=== PATIENT | male | born 1945 | race American Indian/Alaskan Native ===

== ENCOUNTER 2017-09-18 06:08 | Inpatient (IN) | payer MEDICARE, OTHER ==
[2017-09-17 16:32] VITALS: BMI 33.3
[2017-09-18 07:46] LABS: BLOOD UREA NITROGEN 11 mg/dl (9-20); CALCIUM 9.3 mg/dL (8.4-10.2); CARBON DIOXIDE 29 mmol/L (22-30); CHLORIDE 104 mmol/L (98-107); GFR AFRICAN-AMERICAN > 60; GLUCOSE,RANDOM 83 mg/dL (75-110); POTASSIUM 3.9 MMOL/L (3.6-5.0); SODIUM 142 mmol/l (132-148)
[2017-09-18] MEDS ORDERED: Lactated Ringer's 1,000 ML IV ONE ×2 (08:04→14:56)
[2017-09-18] MEDS ORDERED: Etomidate 20 mg/10ml Inj IV ONE (11:21)
[2017-09-18] MEDS ORDERED: Succinylcholine 200 mg/10 ml Inj IV ONE (11:21)
[2017-09-18] MEDS ORDERED: Phenylephrine 10 mg/ml Inj ONE (11:40)
[2017-09-18] MEDS ORDERED: ceFAZolin IV 1 gm in Dextrose 1 GM/50 ML BAG IVPB ONE ×2 (11:41→12:05)
[2017-09-18] MEDS ORDERED: Midazolam 2 MG/2 ML VIAL ONE (11:54)
[2017-09-18] MEDS ORDERED: Propofol 10 mg/ml Inj (20 ML) ONE (11:58)
[2017-09-18] MEDS ORDERED: Rocuronium 10 mg/ml (5 ml) ONE ×2 (12:03→13:25)
[2017-09-18] MEDS ORDERED: Sevoflurane - Inhalation Anesthetic Liq (250 ml) ONE (12:06)
[2017-09-18] MEDS ORDERED: ePHEDrine 50 mg/ml Inj ONE (12:12)
[2017-09-18] MEDS ORDERED: Neostigmine Methylsulfate 2 MG/2 ML ML IV ONE (14:45)
[2017-09-18] MEDS ORDERED: Bupivacaine HCl 0.25% PF (30 ml) Inj ONE (14:49)
[2017-09-18] MEDS ORDERED: Bupivacaine HCl/Epi 0.5% 1:20000 30 ML SOL IJ ONE (14:49)
[2017-09-18] MEDS ORDERED: Desflurane Inhalation Anesthetic Liq (240 ml) ONE (15:05)
[2017-09-18] MEDS ORDERED: HYDROmorphone 0.5 mg/0.5 ml ISec IVP PRN (15:56)
[2017-09-18] MEDS ORDERED: Influenza Vaccine 18yr & older 0.5 ML/45 MCG SYR IM ONE (16:00)
[2017-09-18] MEDS ORDERED: Pneumococcal 23-Valent Vaccine IM ONE (16:00)
--- NOTE | 2017-09-18 16:02 | PCM.ANESB3 ---
Femoral Nerve Block - Femoral Nerve Block Date of Procedure: 09/18/17 Anesthesiologist: Dr. Salazar Pre-Procedure Diagnosis: S/P right TKR Post-Procedure Diagnosis: S/P right TKR Procedure Performed: Femoral Nerve Block Right - Procedure Femoral Nerve Block: The procedure was explained to the patient that it is for the post-operative pain management. Consent was obtained after a thorough discussion with the patient regarding the benefits and possible complications of local anesthetic block of the femoral nerve at the inguinal crease area. The patient was brought to the operating room and standard monitors were applied. Time-out was held with the circulating nurse to confirm the correct surgery and the appropriate block. While still under general anesthesia after the surgery, patient in supine position with fully extended lower extremities and the right groin exposed. The femoral artery was then carefully palpated. The ultrasound transducer was then applied to this area in the transverse plane and the femoral nerve was visualized lateral to the femoral artery and underneath the fascia iliaca. After thorough identification, the inguinal crease area was prepped with Chloraprep solution. At this point, a #21 gauge Stimuplex 4-inch needle was inserted immediately lateral to the femoral artery pulse at the inguinal crease and advanced perpendicularly. The needle was inserted to the ultrasound transducer in-plane towards the femoral nerve in a [id number] direction. Needle advancement was performed carefully under direct ultrasound visualization. Nerve stimulator was used and twitch of the quadriceps muscle was obtained at current of 0.3MA. After negative aspiration, 2cc of 0.375% bupivacaine with 1:200,000 epinephrine was injected and this was followed with 18cc of 0.375% bupivacaine with 1:200, 000 epinephrine. Under ultrasound guidance the local anesthetics were observed spreading below fascia iliaca and around the femoral nerve. The needle was removed intact and sterile dressing was applied. The patient had stable vital signs, was conscious and in no apparent distress. The patient tolerated the femoral nerve block well with stable vital signs and was awaken from anesthesia and extubated. Patient transported to PACU with stable vital signs.
--- NOTE | 2017-09-18 16:09 | PCM.ANESB2 ---
Popliteal Nerve Block - Popliteal Nerve Block Date of Procedure: 09/18/17 Anesthesiologist: Dr. Salazar Pre-Procedure Diagnosis: S/P right TKR Post-Procedure Diagnosis: S/P right TKR Procedure Performed: Popliteal Nerve Block Right - Procedure Popliteal Nerve Block: This procedure was explained to the patient that it is for post-operative pain management. Consent was obtained after a thorough discussion with the patient regarding the benefits and possible complications of local anesthetic block of the sciatic nerve at the popliteal level. The patient was brought to the operating room and standard monitors are applied. Time-out was held with the circulating nurse to confirm the correct surgery and the appropriate block. After the surgery while still under general anesthesia, patient's operative leg was gently raised and supported and the groove in between the biceps femoris and vastus lateralis muscles was carefully palpated. The skin approximately proximal thigh was then marked. The ultrasound transducer was then applied to the posterior thigh in the transverse plane and the sciatic nerve was visualized and in between the bicep femoris and semimembranosus/semitendinosus muscles. After identification, the lateral portion of the thigh was prepped with Chloraprep solution. At this point, a # 21 gauge Stimuplex insulated 4 inch needle was inserted into pre-marked area and advanced in a perpendicular direction. The needle was inserted above the ultrasound transducer in-plane towards the sciatic nerve in a [id number] direction. Needle advancement was performed carefully under direct ultrasound visualization. Nerve stimulator was used and dorsiflexion of the right foot was elicited at a current of 0.3 MA. After repeated negative aspiration, 2cc of 0.375% bupivacaine with 1:200,000 epinephrine was injected and this was flowed with 18cc of 0.375% bupivacaine with 1:200,000 epinephrine. Under ultrasound guidance the local anesthetics were observed surrounding sciatic nerve . The needle was removed intact and sterile dressing was applied. The patient tolerated the popliteal nerve block well with stable vital signs. Patient was subsequently awaken from anesthesia and extubated. Then transportes to PACU with stable vital signs.
--- NOTE | 2017-09-18 16:30 | RAD ---
PROCEDURE: Right Knee Radiographs. HISTORY: s/p R TKA COMPARISON: None. FINDINGS: BONES: No fracture. Status post TKR. Expected postoperative change in anterior soft tissues. JOINTS: Normal. No osteoarthritis. JOINT EFFUSION: None. OTHER FINDINGS: None. IMPRESSION: Status post right TKR.
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
[2017-09-18] MEDS ORDERED: ceFAZolin 2 GM in Sodium Chloride 0.9% 100 ML IVPB SCH (17:00)
[2017-09-18] MEDS: ceFAZolin 2 GM in Sodium Chloride 0.9% 100 ML IVPB SCH (21:50)
[2017-09-19] MEDS: Lactated Ringer's 1,000 ML IV SCH ×2 (00:53→07:35)
[2017-09-19] MEDS: ceFAZolin 2 GM in Sodium Chloride 0.9% 100 ML IVPB SCH ×3 (04:22→20:24)
[2017-09-19] MEDS: Insulin Regular 100 units/ml SC SCH ×4 (06:57→22:04)
[2017-09-19] MEDS: HYDROmorphone 0.5 mg/0.5 ml ISec IVP PRN ×4 (08:13→21:34)
[2017-09-19] MEDS: Insulin Detemir 100 Units/ml Inj SC SCH (08:51)
[2017-09-19] MEDS: Metoprolol Succinate 25 mg XL Tab PO SCH (09:00)
--- NOTE | 2017-09-19 10:15 | CP.PCM.PN ---
Subjective - Date & Time of Evaluation Date of Evaluation: 09/19/17 Time of Evaluation: 08:40 - Subjective Subjective: 72 y/o male seen at bedside this morning 1 day s/p R total knee arthroplasty. Pt admits to mild pain overnight but states that the pain meds are keeping his pain levels under control. Pt has kept the dressing and brace on his R knee clean, dry and intact and has remained in bed when on his own. Pt notes mild swelling in his R foot that he states only began after surgery. Pt states he was seen by physical therapy and began to practice getting out of bed and mobilizing with the use of a walker. Pt states it was difficult for him due to the fact he still feels numb from the anesthesia. Pt also states he chronically deals with nerve pain in his feet due to his diabetes, but states his diabetes is well controlled and he regularly takes his medications. Pt denies any F/C/N/V /CP/SOB. Pt denies any calf pain or tenderness. Objective - Vital Signs/Intake and Output Vital Signs (last 24 hours): Temp Pulse Resp BP Pulse Ox 99.7 F H 74 20 143/71 100 09/19/17 08:29 09/19/17 08:50 09/19/17 08:29 09/19/17 08:50 09/19/17 08:29 - Medications Medications: Current Medications Amlodipine Besylate (Norvasc) 5 mg PO DAILY [facility] Last Admin: 09/19/17 08:50 Dose: 5 mg Atorvastatin Calcium (Lipitor) 20 mg PO HS [facility] Last Admin: 09/19/17 08:51 Dose: 20 mg Enoxaparin Sodium (Lovenox) 30 mg SC Q12 [facility] PRN Reason: Protocol Gabapentin (Neurontin) 300 mg PO TID [facility] Hydromorphone HCl (Dilaudid) 0.5 mg IVP Q4 PRN PRN Reason: Pain, moderate (4-7) Last Admin: 09/19/17 08:13 Dose: 0.5 mg Lactated Ringer's (Lactated Ringer's) 1,000 mls @ 100 mls/hr IV .Q10H [facility] Last Admin: 09/19/17 07:35 Dose: Not Given Cefazolin Sodium 2 gm/ Sodium (Chloride) 100 mls @ 100 mls/hr IVPB Q8@0400,1200 ,2000 [facility] PRN Reason: Protocol Last Admin: 09/19/17 04:22 Dose: 100 mls/hr Insulin Detemir (Levemir) 40 units SC DAILY [facility] Last Admin: 09/19/17 08:51 Dose: 40 units Insulin Human Regular (Humulin R) 0 units SC ACHS [facility] PRN Reason: Protocol Last Admin: 09/19/17 06:57 Dose: Not Given Lisinopril (Zestril) 20 mg PO DAILY [facility] Last Admin: 09/19/17 08:50 Dose: 20 mg Metoprolol Succinate (Toprol Xl) 25 mg PO DAILY [facility] Tamsulosin HCl (Flomax) 0.4 mg PO DAILY [facility] Last Admin: 09/19/17 08:52 Dose: 0.4 mg - Labs Labs: 09/18/17 07:20 - Constitutional Appears: Well, Non-toxic, No Acute Distress - Head Exam Head Exam: ATRAUMATIC, NORMOCEPHALIC - Eye Exam Eye Exam: EOMI, PERRL Pupil Exam: NORMAL ACCOMODATION, PERRL - ENT Exam ENT Exam: Mucous Membranes Moist, Normal Exam - Neck Exam Neck Exam: Full ROM, Normal Inspection Additional comments: supple, non-tender, no swollen nodes - Respiratory Exam Respiratory Exam: Clear to Ausculation Bilateral, NORMAL BREATHING PATTERN Additional comments: negative for wheezing, rales, respiratory distress - Cardiovascular Exam Cardiovascular Exam: REGULAR RHYTHM, +S1, +S2 Additional comments: no murmur, no gallop, no JVD - GI/Abdominal Exam GI & Abdominal Exam: Soft, Normal Bowel Sounds Additional comments: non-tender, non-distended - Rectal Exam Rectal Exam: Deferred - Extremities Exam Extremities Exam: Normal Capillary Refill, Pedal Edema Additional comments: RLE surgical dressing with GAMAL bandage and knee brace intact. No strikethrough noted to bandage. +2 pitting edema noted to perimalleolar region of R ankle extending distally to digits. DP/PT pulses palpable 1/4 on R, 2/4 on L. Temperature gradient is warm to cool B/L. CFT < 3 sec to all digits. - Back Exam Back Exam: NORMAL INSPECTION Additional comments: non-tender - Neurological Exam Neurological Exam: Alert, Awake, Oriented x3 - Psychiatric Exam Psychiatric exam: Normal Affect, Normal Mood - Skin Skin Exam: Intact, Normal Color, Warm Assessment and Plan - Assessment and Plan (Free Text) Assessment: 72 y/o male with PMHx of DM, HTN, HLD, BPH, hearing impairment, obesity, spinal stenosis with degenerative disc disease seen 1 day s/p right total knee replacement Plan: (1) Status post total right knee replacement Assessment & Plan: -1 day s/p surgery with Dr. 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
[2017-09-19 17:15] LABS: HEMATOCRIT 34.1 % (35.0-51.0); MEAN CELL VOLUME 94.7 fl (80.0-94.0); MEAN CORPUSCULAR HEMOGLOBIN 30.3 pg (27.0-31.0); MEAN CORPUSCULAR HGB CONC 31.9 g/dL (33.0-37.0); RED CELL DISTRIBUTION WIDTH 13.7 % (11.5-14.5); WHITE BLOOD COUNT 18.4 K/uL (4.8-10.8)
[2017-09-19 18:03] LABS: ALB/GLOB RATIO 1.1 (1.0-2.1); BILIRUBIN,TOTAL 0.8 mg/dl (0.2-1.3); POTASSIUM 4.2 MMOL/L (3.6-5.0)
[2017-09-19] MEDS: Enoxaparin 30 mg Syringe SC SCH (21:40)
[2017-09-20] MEDS: HYDROmorphone 0.5 mg/0.5 ml ISec IVP PRN ×3 (03:05→20:15)
[2017-09-20] MEDS: ceFAZolin 2 GM in Sodium Chloride 0.9% 100 ML IVPB SCH ×3 (04:20→20:19)
[2017-09-20 06:34] LABS: HEMATOCRIT 32.7 % (35.0-51.0); MEAN CELL VOLUME 94.7 fl (80.0-94.0); MEAN CORPUSCULAR HGB CONC 31.7 g/dL (33.0-37.0); RED CELL DISTRIBUTION WIDTH 13.8 % (11.5-14.5); WHITE BLOOD COUNT 20.8 K/uL (4.8-10.8)
[2017-09-20 06:36] LABS: CALCIUM 8.3 mg/dL (8.4-10.2); POTASSIUM 4.2 MMOL/L (3.6-5.0)
[2017-09-20] MEDS: Insulin Regular 100 units/ml SC SCH ×4 (07:03→22:22)
[2017-09-20] MEDS: Enoxaparin 30 mg Syringe SC SCH ×2 (09:13→22:23)
[2017-09-20] MEDS: Metoprolol Succinate 25 mg XL Tab PO SCH (09:17)
[2017-09-20] MEDS: Insulin Detemir 100 Units/ml Inj SC SCH (09:18)
--- NOTE | 2017-09-20 09:41 | CP.PCM.PN ---
Subjective - Date & Time of Evaluation Date of Evaluation: 09/20/17 Time of Evaluation: 09:19 - Subjective Subjective: Patient in bed states that he is unable to move his right toes nor his right foot. He has pain sensation of right knee. He said he has been laying on his right side whole day yesterday and not able to turn. He also has some back pains. Currently sitting and eating breakfast. Upon examination he has decreased touch sensation of the right foot on all sides. Has good touch sensation above the ankle. Bandage in situ with brace from right mid thigh down to the ankle. Right foot looks swollen/edematous. Brace and bandage loosen by hospitalist. A: Possible Right foot drop P; Suggest neurology consult Objective - Vital Signs/Intake and Output Vital Signs (last 24 hours): Temp Pulse Resp BP Pulse Ox 99.6 F 89 20 124/63 95 09/20/17 07:17 09/20/17 07:17 09/20/17 07:17 09/20/17 07:17 09/20/17 07:17 - Medications Medications: Current Medications Amlodipine Besylate (Norvasc) 5 mg PO DAILY [facility] Last Admin: 09/19/17 08:50 Dose: 5 mg Atorvastatin Calcium (Lipitor) 20 mg PO HS [facility] Last Admin: 09/19/17 21:39 Dose: 20 mg Enoxaparin Sodium (Lovenox) 30 mg SC Q12 [facility] PRN Reason: Protocol Last Admin: 09/20/17 09:13 Dose: 30 mg Gabapentin (Neurontin) 300 mg PO TID [facility] Last Admin: 09/20/17 09:05 Dose: 300 mg Hydromorphone HCl (Dilaudid) 0.5 mg IVP Q4 PRN PRN Reason: Pain, moderate (4-7) Last Admin: 09/20/17 03:05 Dose: 0.5 mg Lactated Ringer's (Lactated Ringer's) 1,000 mls @ 100 mls/hr IV .Q10H [facility] Last Admin: 09/19/17 07:35 Dose: Not Given Cefazolin Sodium 2 gm/ Sodium (Chloride) 100 mls @ 100 mls/hr IVPB Q8@0400,1200 ,2000 [facility] PRN Reason: Protocol Last Admin: 09/20/17 04:20 Dose: 100 mls/hr Insulin Detemir (Levemir) 40 units SC DAILY [facility] Last Admin: 09/19/17 08:51 Dose: 40 units Insulin Human Regular (Humulin R) 0 units SC [facility] PRN Reason: Protocol Last Admin: 09/20/17 07:03 Dose: 1 units Lisinopril (Zestril) 20 mg PO DAILY [facility] Last Admin: 09/19/17 08:50 Dose: 20 mg Metoprolol Succinate (Toprol Xl) 25 mg PO DAILY [facility] Last Admin: 09/19/17 09:00 Dose: 25 mg Tamsulosin HCl (Flomax) 0.4 mg PO DAILY [facility] Last Admin: 09/19/17 08:52 Dose: 0.4 mg - Labs Labs: 09/20/17 05:30 09/20/17 05:30
--- NOTE | 2017-09-20 09:57 | CP.PCM.PN ---
Subjective - Date & Time of Evaluation Date of Evaluation: 09/20/17 Time of Evaluation: 08:00 - Subjective Subjective: Immediately came to eval pt at bedside RN noticed that on early am rounds that pt is unable to wiggle his toes on the side of TKR Dr Saenz called Dr Salazar- anesthesia who had gievn Nerve block post op also notified of this finding Pt unable to wiggle toes and has decrease sensation from ankle down No fever denies CP no SOB able to move all other extremities he states that prior to the surgery he was able to ambulate however suffers from chronic low back pain and knee pain. hx of Laminectomy in the Objective - Vital Signs/Intake and Output Vital Signs (last 24 hours): Temp Pulse Resp BP Pulse Ox 99.6 F 89 20 124/63 95 09/20/17 07:17 09/20/17 09:18 09/20/17 07:17 09/20/17 09:18 09/20/17 07:17 - Medications Medications: Current Medications Amlodipine Besylate (Norvasc) 5 mg PO DAILY [facility] Last Admin: 09/20/17 09:17 Dose: 5 mg Atorvastatin Calcium (Lipitor) 20 mg PO HS [facility] Last Admin: 09/19/17 21:39 Dose: 20 mg Enoxaparin Sodium (Lovenox) 30 mg SC Q12 [facility] PRN Reason: Protocol Last Admin: 09/20/17 09:13 Dose: 30 mg Gabapentin (Neurontin) 300 mg PO TID [facility] Last Admin: 09/20/17 09:05 Dose: 300 mg Hydromorphone HCl (Dilaudid) 0.5 mg IVP Q4 PRN PRN Reason: Pain, moderate (4-7) Last Admin: 09/20/17 03:05 Dose: 0.5 mg Cefazolin Sodium 2 gm/ Sodium (Chloride) 100 mls @ 100 mls/hr IVPB Q8@0400,1200 ,2000 [facility] PRN Reason: Protocol Last Admin: 09/20/17 04:20 Dose: 100 mls/hr Sodium Chloride (Sodium Chloride 0.9%) 500 mls @ 150 mls/hr IV .Q3H20M [facility] Insulin Detemir (Levemir) 40 units SC DAILY [facility] Last Admin: 09/20/17 09:18 Dose: 40 units Insulin Human Regular (Humulin R) 0 units SC ACHS [facility] PRN Reason: Protocol Last Admin: 09/20/17 07:03 Dose: 1 units Lisinopril (Zestril) 20 mg PO DAILY [facility] Last Admin: 09/20/17 09:18 Dose: 20 mg Metoprolol Succinate (Toprol Xl) 25 mg PO DAILY [facility] Last Admin: 09/20/17 09:17 Dose: 25 mg Tamsulosin HCl (Flomax) 0.4 mg PO DAILY [facility] Last Admin: 09/20/17 09:17 Dose: 0.4 mg - Labs Labs: 09/20/17 05:30 09/20/17 05:30 - Constitutional Appears: No Acute Distress - Head Exam Head Exam: NORMAL INSPECTION, NORMOCEPHALIC - Eye Exam Eye Exam: EOMI, Normal appearance Pupil Exam: NORMAL ACCOMODATION - ENT Exam ENT Exam: Mucous Membranes Moist, Normal External Ear Exam - Neck Exam Neck Exam: Full ROM. absent: Meningismus - Respiratory Exam Respiratory Exam: NORMAL BREATHING PATTERN. absent: Respiratory Distress - Cardiovascular Exam Cardiovascular Exam: REGULAR RHYTHM, +S1, +S2 - GI/Abdominal Exam GI & Abdominal Exam: Soft, Normal Bowel Sounds. absent: Tenderness - Extremities Exam Extremities Exam: Normal Capillary Refill. absent: Calf Tenderness Additional comments: Left full ROM Right , unable to wiggle toes however able to flex hip - Back Exam Back Exam: Full ROM. absent: CVA tenderness (L), CVA tenderness (R) - Neurological Exam Neurological Exam: Alert, Awake Neuro motor strength exam: Left Upper Extremity: 5, Right Upper Extremity: 5, Left Lower Extremity: 5 Additional comments: oriented to person and place - Psychiatric Exam Psychiatric exam: Flat Affect, Normal Mood - Skin Skin Exam: Dry, Normal Color, Warm Assessment and Plan - Assessment and Plan (Free Text) Assessment: 72 y/o male with PMHx of DM, HTN, HLD, BPH, hearing impairment, obesity, OA, Spinal stenosis with degenerative disc disease ( Hx of Laminectomy) s/p right total knee replacement. Plan: (1) Status post total right knee replacement Assessment & Plan: -s/p surgery with Dr. Dany Rosado, on consult -continue Ancef -2 more doses at 12:00 and 20:00 -Physical therapy on board -Occupational therapy -Pain control with Dilaudid 0.5mg IVP q4 PRN -Encourage incentive spirometry every hour Status: Acute 2. 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
[2017-09-20] MEDS ORDERED: Sodium Chloride 0.9% 500 ML IV SCH (10:00)
--- NOTE | 2017-09-20 12:15 | CT ---
PROCEDURE: CT Lumbar Spine without contrast HISTORY: decrease sensory andf motor right foot post TKR, COMPARISON: None. TECHNIQUE: Axial computed tomography images were obtained of the lumbar spine without the use of intravenous contrast. Coronal and sagittal reformatted images were created and reviewed. Radiation dose: Total exam DLP = 2467.61 mGy-cm. This CT exam was performed using one or more of the following dose reduction techniques: Automated exposure control, adjustment of the mA and/or kV according to patient size, and/or use of iterative reconstruction technique. FINDINGS: VERTEBRAE: There is normal alignment of the lumbar vertebral bodies. Lumbar lordosis is maintained. There is diffuse bone demineralization. There is no acute fracture. There is mild degenerative loss of inferior vertebral height at L1 and superior vertebral height at L2. There are postsurgical changes of laminotomy and posterior spinal fixation with transpedicular screws at L4, L5 and S1. There is no evidence of loosening or screw fracture. DISCS/SPINAL CANAL/NEURAL FORAMINA: Evaluation of the conus medullaris and nerve roots of cauda equina as well as discs is limited on noncontrast CT examination. There is desiccation of the L1-2 disc and postsurgical fusion at L2-3, L4-5 and L5-S1. There is severe reduced disc height L2-3. L1-2: Diffuse posterior disc bulge and mild ligamentum flavum infolding without spinal canal stenosis. Mild bilateral facet arthropathy contributes to moderate neural foraminal stenosis. L2-3: Diffuse posterior disc bulge without spinal canal stenosis. Moderate ligamentum flavum infolding contributes to moderate neural foraminal stenosis. L3-4: Mild posterior disc bulge without spinal canal stenosis. Mild right neural foraminal stenosis. L4-5: Postsurgical fusion L5-S1: Postsurgical fusion PARASPINAL SOFT TISSUES: Unremarkable. OTHER FINDINGS: None. IMPRESSION: 1. No acute fracture. 2. Status post posterior spinal fixation from L4-S1, no evidence of hardware complications. Postsurgical fusion of the L4-5 and L5-S1 discs. 3. Posterior disc bulges at L1-2, L2-3 and L3-4 without spinal canal stenosis, worse at L2-3 with moderate neural foraminal stenosis. Additional comments as described above.
--- NOTE | 2017-09-20 13:07 | CP.PCM.PN ---
Subjective - Date & Time of Evaluation Date of Evaluation: 09/20/17 Time of Evaluation: 12:35 - Subjective Subjective: POD #2 Rt TKA S - Notified by nursing and Dr. El that patient reporting numbness in foot and inability to move toes. Pt states foot feels numb and complains of right side of back. Lumbar CT recently completed today O- alert and oriented breathing comfortably abdomen rotund but benign right leg knee immobilizer and dressing removed incision C/D/I with mariel, no drainage appropriate swelling to RLE deep peroneal sensation deficient, other sensation intact noted to slightly wiggle small toes to verbal command but not big toe A - Probably deep peroneal nerve palsy post op P - monitor NV status RLE keep RLE slightly flexed and knee and keep pressure of peroneal nerve support heel area to avoid pressure cont lovenox PT for ambulation and gait training assess for foot drop with PT and provide AFO if needed may be discharged per ortho in AM 09/21 if cleared by PT Objective - Vital Signs/Intake and Output Vital Signs (last 24 hours): Temp Pulse Resp BP Pulse Ox 98.5 F 89 20 124/63 95 09/20/17 12:59 09/20/17 09:18 09/20/17 07:17 09/20/17 09:18 09/20/17 07:17 - Medications Medications: Current Medications Amlodipine Besylate (Norvasc) 5 mg PO DAILY [facility] Last Admin: 09/20/17 09:17 Dose: 5 mg Atorvastatin Calcium (Lipitor) 20 mg PO HS [facility] Last Admin: 09/19/17 21:39 Dose: 20 mg Enoxaparin Sodium (Lovenox) 30 mg SC Q12 [facility] PRN Reason: Protocol Last Admin: 09/20/17 09:13 Dose: 30 mg Gabapentin (Neurontin) 300 mg PO TID [facility] Last Admin: 09/20/17 09:05 Dose: 300 mg Hydromorphone HCl (Dilaudid) 0.5 mg IVP Q4 PRN PRN Reason: Pain, moderate (4-7) Last Admin: 09/20/17 11:49 Dose: 0.5 mg Cefazolin Sodium 2 gm/ Sodium (Chloride) 100 mls @ 100 mls/hr IVPB Q8@0400,1200 ,2000 [facility] PRN Reason: Protocol Last Admin: 09/20/17 12:54 Dose: 100 mls/hr Sodium Chloride (Sodium Chloride 0.9%) 500 mls @ 150 mls/hr IV .Q3H20M [facility] Last Admin: 09/20/17 10:21 Dose: 150 mls/hr Insulin Detemir (Levemir) 40 units SC DAILY [facility] Last Admin: 09/20/17 09:18 Dose: 40 units Insulin Human Regular (Humulin R) 0 units SC [facility] PRN Reason: Protocol Last Admin: 09/20/17 12:54 Dose: 3 units Lisinopril (Zestril) 20 mg PO DAILY [facility] Last Admin: 09/20/17 09:18 Dose: 20 mg Metoprolol Succinate (Toprol Xl) 25 mg PO DAILY [facility] Last Admin: 09/20/17 09:17 Dose: 25 mg Tamsulosin HCl (Flomax) 0.4 mg PO DAILY [facility] Last Admin: 09/20/17 09:17 Dose: 0.4 mg - Labs Labs: 09/20/17 05:30 09/20/17 05:30
[2017-09-20 13:38] LABS: HEMATOCRIT 31.6 % (35.0-51.0); MEAN CELL VOLUME 93.5 fl (80.0-94.0); MEAN CORPUSCULAR HEMOGLOBIN 30.6 pg (27.0-31.0); MEAN CORPUSCULAR HGB CONC 32.7 g/dL (33.0-37.0); RED CELL DISTRIBUTION WIDTH 13.7 % (11.5-14.5); WHITE BLOOD COUNT 21.4 K/uL (4.8-10.8)
[2017-09-20 13:44] LABS: CALCIUM 8.3 mg/dL (8.4-10.2); POTASSIUM 4.5 MMOL/L (3.6-5.0)
[2017-09-20] MEDS ORDERED: Oxycodone/Acetaminophen 5/325 mg Tab PO PRN (14:59)
[2017-09-20] MEDS: Sodium Chloride 0.9% 1,000 ML IV SCH (17:42)
--- NOTE | 2017-09-20 19:29 | CP.PCM.CON ---
History of Present Illness - History of Present Illness History of Present Illness: CONSULT DICTATED PERONEAL ENTRAPMENT DUE TO CAST RIGHT S1 RADICULOPATHY NEW Vs OLD NEUROPATHY NEEDS EMG/NCV AFTER 4 WEEKS Past Patient History - Past Medical History & Family History Past Medical History?: Yes - Past Social History Smoking Status: Former Smoker - CARDIAC Hx Hypertension: Yes - PULMONARY Hx Respiratory Disorders: No - NEUROLOGICAL Hx Neurological Disorder: No - HEENT Hx HEENT Problems: Yes Hx Cataracts: Yes - RENAL Hx Chronic Kidney Disease: No - ENDOCRINE/METABOLIC Hx Endocrine Disorders: Yes Hx Diabetes Mellitus Type 2: Yes - HEMATOLOGICAL/ONCOLOGICAL Hx Blood Disorders: No Hx Anemia: No Hx Blood Transfusions: No Hx Cancer: Yes (SKIN CANCER;LEUKEMIA;LYMPHOMA) Hx Chemotherapy: Yes Hx Leukemia: Yes Other/Comment: HX OF RADIATION - INTEGUMENTARY Hx Dermatological Problems: No - MUSCULOSKELETAL/RHEUMATOLOGICAL Hx Musculoskeletal Disorders: Yes Hx Arthritis: Yes Hx Back Pain: Yes Hx Falls: No - GASTROINTESTINAL Hx Gastrointestinal Disorders: No - GENITOURINARY/GYNECOLOGICAL Hx Genitourinary Disorders: No - PSYCHIATRIC Hx Psychophysiologic Disorder: No - SURGICAL HISTORY Hx Surgeries: Yes Other/Comment: CATARACT-AFSHAN;BACK SURGERYX3;SKIN CANCER ON THE HEAD - ANESTHESIA Hx Anesthesia: Yes Hx Anesthesia Reactions: No Hx Malignant Hyperthermia: No Has any member of the family had a problem w/ anesthesia?: No Meds Allergies/Adverse Reactions: Allergies Allergy/AdvReac Type Severity Reaction Status Date / Time No Known Allergies Allergy Verified 09/17/17 16:32 - Medications Medications: Current Medications Amlodipine Besylate (Norvasc) 5 mg PO DAILY [facility] Last Admin: 09/20/17 09:17 Dose: 5 mg Atorvastatin Calcium (Lipitor) 20 mg PO HS [facility] Last Admin: 09/19/17 21:39 Dose: 20 mg Enoxaparin Sodium (Lovenox) 30 mg SC Q12 [facility] PRN Reason: Protocol Last Admin: 09/20/17 09:13 Dose: 30 mg Gabapentin (Neurontin) 300 mg PO TID [facility] Last Admin: 09/20/17 16:42 Dose: 300 mg Hydromorphone HCl (Dilaudid) 0.5 mg IVP Q4 PRN PRN Reason: Pain, severe (8-10) Cefazolin Sodium 2 gm/ Sodium (Chloride) 100 mls @ 100 mls/hr IVPB Q8@0400,1200 ,2000 [facility] PRN Reason: Protocol Last Admin: 09/20/17 12:54 Dose: 100 mls/hr Sodium Chloride (Sodium Chloride 0.9%) 1,000 mls @ 80 mls/hr IV .[id number] [facility] Stop: 09/21/17 17:08 Last Admin: 09/20/17 17:42 Dose: 80 mls/hr Insulin Detemir (Levemir) 40 units SC DAILY [facility] Last Admin: 09/20/17 09:18 Dose: 40 units Insulin Human Regular (Humulin R) 0 units SC ACHS [facility] PRN Reason: Protocol Last Admin: 09/20/17 17:37 Dose: 2 units Metoprolol Succinate (Toprol Xl) 25 mg PO DAILY [facility] Last Admin: 09/20/17 09:17 Dose: 25 mg Oxycodone/Acetaminophen (Percocet 5/325 Mg Tab) 1 tab PO Q4 PRN PRN Reason: Pain, moderate (4-7) Stop: 09/23/17 15:00 Last Admin: 09/20/17 15:27 Dose: 1 tab Tamsulosin HCl (Flomax) 0.4 mg PO DAILY [facility] Last Admin: 09/20/17 09:17 Dose: 0.4 mg Results - Vital Signs Recent Vital Signs: Last Vital Signs Temp 98.9 F 09/20/17 17:00 Pulse 89 09/20/17 16:02 Resp 20 09/20/17 16:02 BP 138/75 09/20/17 16:02 Pulse Ox 96 09/20/17 16:02 - Labs Result Diagrams: 09/20/17 12:30 09/20/17 13:10 Labs: Laboratory Results - last 24 hr 09/19/17 09/20/17 09/20/17 21:23 05:30 05:30 WBC 20.8 H RBC 3.46 L Hgb 10.4 L Hct 32.7 L MCV 94.7 H MCH 30.0 MCHC 31.7 L RDW 13.8 Plt Count 130 Sodium 137 Potassium 4.2 Chloride 101 Carbon Dioxide 27 Anion Gap 13 BUN 29 H Creatinine 1.7 H Est GFR ( Amer) 48 Est GFR (Non-Af Amer) 40 POC Glucose (mg/dL) 189 H Random Glucose 151 H Calcium 8.3 L 09/20/17 09/20/1709/20/17 06:06 10:38 12:30 WBC 21.4 H RBC 3.38 L Hgb 10.3 L Hct 31.6 L MCV 93.5 MCH 30.6 MCHC 32.7 L RDW 13.7 Plt Count 125 L Sodium Potassium Chloride Carbon Dioxide Anion Gap BUN Creatinine Est GFR ( Amer) Est GFR (Non-Af Amer) POC Glucose (mg/dL) 165 H 260 H Random Glucose Calcium 09/20/17 09/20/17 13:10 15:49 WBC RBC Hgb Hct MCV MCH MCHC RDW Plt Count Sodium 136 Potassium 4.5 Chloride 101 Carbon Dioxide 28 Anion Gap 12 BUN 30 H Creatinine 1.5 Est GFR ( Amer) 55 Est GFR (Non-Af Amer) 46 POC Glucose (mg/dL) 214 H Random Glucose 211 H Calcium 8.3 L
[2017-09-21 01:26] LABS: RBC URINE 5 /hpf (0-3); URINE BILIRUBIN NEGATIVE (NEGATIVE); URINE BLOOD LARGE (NEGATIVE); URINE COLOR YELLOW (YELLOW); URINE GLUCOSE (UA) 50 mg/dL (Normal); URINE KETONE NEGATIVE (NEGATIVE); URINE LEUKOCYTE ESTERASE NEG Leu/uL (Negative); URINE PROTEIN 30 mg/dL (NEGATIVE); URINE UROBILINOGEN 0.2-1.0 mg/dL (0.2-1.0); WBC URINE 2 /hpf (0-5)
[2017-09-21] MEDS: HYDROmorphone 0.5 mg/0.5 ml ISec IVP PRN ×2 (01:51→08:17)
[2017-09-21] MEDS: ceFAZolin 2 GM in Sodium Chloride 0.9% 100 ML IVPB SCH (04:20)
--- NOTE | 2017-09-21 05:14 | CON ---
DATE: 09/20/2017 REASON FOR CONSULTATION: Right leg numbness. CHIEF COMPLAINT: Patient was admitted for right knee replacement and nerve block injection for his pain. Following the procedure, patient does complain of inability to move his foot and toes with numbness. From neurological point of view, I was called in to evaluate his numbness and weakness. HISTORY OF PRESENTING ILLNESS: Mr. Torsten Hu is a 72-year-old moderately obese right-handed male being admitted for knee replacement. Following the surgery, patient did have nerve block injection to alleviate his pain. This morning, patient started complaining of radicular pain from his hip. On examination, patient was found to have inability to move his toes and new weakness with numbness on his foot. PAST MEDICAL HISTORY: Had degenerative disc disease and laminectomy was done in 1989. Patient is also suffering from hypertension, non-insulin dependant diabetes mellitus with dyslipidemia. PERSONAL HISTORY: Denies smoking or alcohol use. REVIEW OF SYSTEMS: As per H and P. MEDICATIONS: Cefazolin, Dilaudid, Flomax, Humulin, Levemir, Lipitor, Lovenox, Neurontin, Norvasc, oxycodone. PHYSICAL EXAMINATION: VITAL SIGNS: Blood pressure 138/75, mean arterial pressure of 96, respiratory rate 18, and temperature 98.9, pulse rate is 89, NECK: Supple. No carotid bruit. HEART: Sounds are regular. CHEST: Fair air entry. EXTREMITIES: No edema in legs. On the right leg, postsurgical dressing over the knee region. NEUROLOGIC: Mental status examination: He is awake, alert, oriented to person, place and time. Speech is clear. Naming, repetition, fluency intact. He follows commands. Cranial nerve examination: Visual field intact. Pupils are reactive to light. Extraocular movement normal. No nystagmus. No facial sensory deficit. No facial asymmetry. Hearing seems to be affected significantly on both sides, inability to understand with normal talking. Bulbar functions are normal. Motor examination: He was able to lift both upper extremities against the gravity. No drift noted. Power is symmetric on either side. Lower extremity, he could lift either lower extremity against the gravity with no problem. Right leg, he has difficulty due to his surgery. Deep tendon reflexes absent throughout. Plantars are downgoing on both sides. Sensory examination: Significantly decreased posterior column dysfunction in his right foot. Pinprick is decreased over the right S1 dermatome on his right side. Decreased vibration sense distally noted in both lower extremities. He was able to move his toes, wiggle his toes; however, he was not able to sustain either dorsiflexion as well as plantar flexion. Spine examination could not be done because of his physique and recent surgery. Patient does have urinary retention, needs a catheterization to decompress his bladder distention. WORKUP: CT of the lumbosacral spine shows significant degenerative disease and spinal stenosis with postsurgical changes noted. There is no epidural hematoma. Blood workup: WBC 21.4, hemoglobin 10.3, hematocrit 31.6, platelets 125. Sodium 136, potassium 4.5, chloride 101, bicarbonate 28, BUN 30, creatinine 1.5, glucose 214, calcium 8.3. CONCLUSION: Mr. Torsten Hu has been presenting with possible postsurgical as well as entrapment neuropathy from the splint what he had at the knee region. However, the current examination shows S1 radiculopathy. It could be old. However, patient states after the surgery, the pain is radiating from his hip down. This could be from epidural injection versus disk degenerative disease from his lower back also. It is very hard for me to distinguish his problem. RECOMMENDATIONS: 1. Patient is cleared for his rehabilitation. 2. Antibiotic would be continued as per the recommendation. 3. Patient can be benefited when medically stable to have electrodiagnostic studies to assess his entrapment neuropathy versus radiculopathy, which is superimposed with his underlying peripheral neuropathy. 4. DVT prophylaxis should be continued because of his restricted ambulation. Johnson Green MD
[2017-09-21 07:00] LABS: BASO % 0.2 % (0.0-2.0); EOS % 0.1 % (0.0-4.0); HEMATOCRIT 28.4 % (35.0-51.0); LYMPH # 4.9 K/uL (1.0-4.3); LYMPH % 22.3 % (20.0-40.0); MEAN CELL VOLUME 94.5 fl (80.0-94.0); MEAN CORPUSCULAR HEMOGLOBIN 30.7 pg (27.0-31.0); MEAN CORPUSCULAR HGB CONC 32.5 g/dL (33.0-37.0); MONO # 2.2 K/uL (0.0-0.8); MONO % 9.7 % (0.0-10.0); NEUT % 67.7 % (50.0-75.0); RED CELL DISTRIBUTION WIDTH 13.7 % (11.5-14.5); WHITE BLOOD COUNT 22.1 K/uL (4.8-10.8)
[2017-09-21] MEDS: Sodium Chloride 0.9% 1,000 ML IV SCH (07:03)
[2017-09-21 07:09] LABS: BLOOD UREA NITROGEN 24 mg/dl (9-20); CALCIUM 8.4 mg/dL (8.4-10.2); CARBON DIOXIDE 27 mmol/L (22-30); CHLORIDE 103 mmol/L (98-107); GFR AFRICAN-AMERICAN > 60; GLUCOSE,RANDOM 183 mg/dL (75-110); POTASSIUM 4.1 MMOL/L (3.6-5.0); SODIUM 139 mmol/l (132-148)
[2017-09-21 07:17] VITALS: RESP 18; TEMP 99.2; O2SAT 96
[2017-09-21] MEDS ORDERED: Oxycodone/Acetaminophen 5/325 mg Tab PO PRN (08:42)
[2017-09-21] MEDS: Insulin Regular 100 units/ml SC SCH ×2 (08:59→12:48)
[2017-09-21] MEDS: Enoxaparin 30 mg Syringe SC SCH (09:01)
[2017-09-21] MEDS: Insulin Detemir 100 Units/ml Inj SC SCH (09:02)
[2017-09-21] MEDS: Metoprolol Succinate 25 mg XL Tab PO SCH (09:02)
--- NOTE | 2017-09-21 09:19 | CP.PCM.DIS ---
Provider - Provider Date of Admission: 09/18/17 15:47 Attending physician: Autumn Keller DO Primary care physician: Nabil Saenz MD Consults: Ortho: Dr Saenz Neuro : Dr Green Time Spent in preparation of Discharge (in minutes): 45 Diagnosis - Discharge Diagnosis (1) Status post total right knee replacement Status: Acute (2) DM type 2 (diabetes mellitus, type 2) Status: Chronic (3) Foot drop, right Status: Acute (4) Hyperlipidemia Status: Chronic (5) Hypertension Status: Chronic (6) BPH (benign prostatic hyperplasia) Status: Chronic (7) Leukocytosis Status: Chronic Hospital Course - Lab Results Lab Results: Most Recent Lab Values WBC 22.1 K/uL (4.8-10.8) H 09/21/17 05:30 RBC 3.00 Mil/uL (4.40-5.90) L 09/21/17 05:30 Hgb 9.2 g/dL (12.0-18.0) L 09/21/17 05:30 Hct 28.4 % (35.0-51.0) L 09/21/17 05:30 MCV 94.5 fl (80.0-94.0) H 09/21/17 05:30 MCH 30.7 pg (27.0-31.0) 09/21/17 05:30 MCHC 32.5 g/dL (33.0-37.0) L 09/21/17 05:30 RDW 13.7 % (11.5-14.5) 09/21/17 05:30 Plt Count 122 K/uL (130-400) L 09/21/17 05:30 MPV 11.0 fl (7.2-11.7) 09/21/17 05:30 Neut % (Auto) 67.7 % (50.0-75.0) 09/21/17 05:30 Lymph % (Auto) 22.3 % (20.0-40.0) 09/21/17 05:30 [place] % (Auto) 9.7 % (0.0-10.0) 09/21/17 05:30 Eos % (Auto) 0.1 % (0.0-4.0) 09/21/17 05:30 Baso % (Auto) 0.2 % (0.0-2.0) 09/21/17 05:30 Neut # 15.0 K/uL (1.8-7.0) H 09/21/17 05:30 Lymph # 4.9 K/uL (1.0-4.3) H 09/21/17 05:30 [place] # 2.2 K/uL (0.0-0.8) H 09/21/17 05:30 Eos # 0.0 K/uL (0.0-0.7) 09/21/17 05:30 Baso # 0.0 K/uL (0.0-0.2) 09/21/17 05:30 Sodium 139 mmol/l (132-148) 09/21/17 05:30 Potassium 4.1 MMOL/L (3.6-5.0) 09/21/17 05:30 Chloride 103 mmol/L (98-107) 09/21/17 05:30 Carbon Dioxide 27 mmol/L (22-30) 09/21/17 05:30 Anion Gap 13 (10-20) 09/21/17 05:30 BUN 24 mg/dl (9-20) H 09/21/17 05:30 Creatinine 1.3 mg/dL (0.8-1.5) 09/21/17 05:30 Est GFR ( Amer) > 60 09/21/17 05:30 Est GFR (Non-Af Amer) 54 09/21/17 05:30 POC Glucose (mg/dL) 242 mg/dL (65-110) H 09/21/17 07:10 Random Glucose 183 mg/dL (75-110) H 09/21/17 05:30 Calcium 8.4 mg/dL (8.4-10.2) 09/21/17 05:30 Total Bilirubin 0.8 mg/dl (0.2-1.3) 09/19/17 17:10 AST 26 U/L (17-59) 09/19/17 17:10 ALT 30 U/L (21-72) 09/19/17 17:10 Alkaline Phosphatase 63 U/L (38-126) 09/19/17 17:10 Total Protein 6.0 G/DL (6.3-8.2) L 09/19/17 17:10 Albumin 3.2 g/dL (3.5-5.0) L 09/19/17 17:10 Globulin 2.8 gm/dL (2.2-3.9) 09/19/17 17:10 Albumin/Globulin Ratio 1.1 (1.0-2.1) 09/19/17 17:10 Urine Color Yellow (YELLOW) 09/20/17 17:33 Urine Clarity Cloudy (Clear) 09/20/17 17: Urine pH 5.0 (5.0-8.0) 09/20/17 17:33 Ur Specific [place] 1.017 (1.003-1.030) 09/20/17 17:33 Urine Protein 30 mg/dL (NEGATIVE) 09/20/17 17:33 Urine Glucose (UA) 50 mg/dL (Normal) 09/20/17 17: Urine Ketones Negative mg/dL (NEGATIVE) 09/20/17 17: Urine Blood Large (NEGATIVE) 09/20/17 17: Urine Nitrate Negative (NEGATIVE) 09/20/17: Urine Bilirubin Negative (NEGATIVE) 09/20/17 17: Urine Urobilinogen 0.2-1.0 mg/dL (0.2-1.0) 09/20/17 17:33 Ur Leukocyte Esterase Neg Matilda/uL (Negative) 09/20/17 17:33 Urine RBC (Auto) 5 /hpf (0-3) H 09/20/17 17:33 Urine Microscopic WBC 2 /hpf (0-5) 09/20/17 17:33 Blood Type A POSITIVE 09/18/17 07:20 Blood Type Confirm A POSITIVE 09/18/17 07:43 Antibody Screen Negative 09/18/17 07:20 BBK History Checked No verified bt 09/18/17 07:20 - Hospital Course Hospital Course: 72 y/o male with PMHx of Leukemia, DM, HTN, HLD, BPH, hearing impairment, obesity, OA, Spinal stenosis with degenerative disc disease ( Hx of Laminectomy ) , admitted post right total knee replacement. (1) Status post total right knee replacement -s/p surgery with Dr. Saenz Ortho -IV Ancef for Surgical prophylaxis- Ancef was continued bec of suspicion for infection ( as WBC ct elevated , and he had some urinary retention ) , pt remained afebrile , and WBC elevation likely due to his Leukemia -Physical therapy on board- rec [facility] -Occupational therapy -Pain control with Dilaudid 0.5mg IVP q4 PRN and Percocet - cut down on pain meds as pt gets delirium with Opiates accdg to his daughter , Dilaudid d/c -Encourage incentive spirometry every hour - cleared by Dr Saenz for d/c to [facility] Status: Acute 2. Foot Drop , right noted foot drop post op GAMAL bandage loosened and this improved Dr Saenz notified , case discussed - came immediately to examine pt Anesthesia called to eval as pt received nerve block post op Neurology consulted- discussed case with Dr Green - rec to get LS spine CT LS Spine CT : 1. No acute fracture. 2. Status post posterior spinal fixation from L4-S1, no evidence of hardware complications. Postsurgical fusion of the L4-5 and L5-S1 discs. 3. Posterior disc bulges at L1-2, L2-3 and L3-4 without spinal canal stenosis, worse at L2-3 with moderate neural foraminal stenosis. Pt now able to wiggle toes, and moves R foot (3) Hypertension -Continue Norvasc, Lisinopril, and Metoprolol Increase Norvasc to 10 mg daily Status: Acute (4) DM type II , insulin-dependent with neuropathy -Accu-Checks before meals at bedtime -Continue Levemir as well as insulin protocol -Diabetic diet -Continue Gabapentin 300 mg PO TID Status: Acute (5) DVT prophylaxis -Continue SCDs and Lovenox Status: Acute (6) BPH (benign prostatic hyperplasia), post op Urinary Retention likely exacerbated by Opiates and anesthesia - Straight cath done -continue Flomax -will monitor BP Status: Acute (7) Hyperlipidemia -Continue Atorvastatin Status: Acute 8. Leukocytosis likely sec to leukemia - ff up with Oncologist max on discharge Discharge Exam - Head Exam Head Exam: ATRAUMATIC, NORMAL INSPECTION, NORMOCEPHALIC - Eye Exam Eye Exam: EOMI, Normal appearance Pupil Exam: NORMAL ACCOMODATION - ENT Exam ENT Exam: Mucous Membranes Moist, Normal External Ear Exam - Neck Exam Neck exam: Full Rom - Respiratory Exam Respiratory Exam: NORMAL BREATHING PATTERN. absent: Respiratory Distress - Cardiovascular Exam Cardiovascular Exam: REGULAR RHYTHM, +S1, +S2 - GI/Abdominal Exam GI & Abdominal Exam: Normal Bowel Sounds, Soft. absent: Tenderness - Extremities Exam Extremities exam: normal capillary refill, pedal pulses present Additional comments: no calf tenderness able to wiggle toes and move foot - Neurological Exam Neurological exam: Alert Additional comments: oriented to person and place - Psychiatric Exam Psychiatric exam: Normal Affect, Normal Mood - Skin Skin Exam: Dry, Normal Color, Warm Discharge Plan - Discharge Medications Prescriptions: amLODIPine [Norvasc] 10 mg PO DAILY #1 tab - Follow Up Plan Condition: GOOD Disposition: TRANSF TO SNF Instructions: Knee Replacement (DC) Additional Instructions: appt with Dr Saenz in 1 wk ff up with web specialist max ff up with Oncology max EMG/NCV as outpt Referrals: Nabil Saenz MD [Primary Care Provider] -
[2017-09-21 14:14] VITALS: BP 179/77; PULSE 101
--- NOTE | 2017-09-25 17:33 | OP ---
PROCEDURE DATE: 09/18/2017 PREOPERATIVE DIAGNOSIS: End-stage osteoarthritis of right knee. POSTOPERATIVE DIAGNOSIS: End-stage osteoarthritis of right knee. PROCEDURE: Right total knee arthroplasty. SURGEON: Nabil Saenz MD. PLANT OPERATIONS ENGINEER: Caron Teresa PA-C TYPE OF ANESTHESIA: General. ESTIMATED BLOOD LOSS: 150 mL. IV FLUID: Crystalloid. SPECIMEN: None. DRAINS: None. COMPLICATIONS: None. DESCRIPTION OF PROCEDURE: The patient was brought to an operating room, transferred to an operating room table, placed under general anesthetic. The patient was then positioned, padded, prepped and draped in a standard surgical fashion for right knee arthroplasty. A tourniquet had been placed high on the right thigh. Pump had also been positioned to the side of the operating room table to assist stabilizing the leg when in deep flexion. Also, a sandbag had been placed on to the lower region of the table to also help assist keeping the knee in a deeply flexed position during surgery. Prior to starting the surgery, a time-out was performed confirming the patient, procedure, anatomic site. The expected skin incision had been pre-marked on the skin with skin marker and Ioban also had been placed over the knee. Patient had also been pre-administered IV Ancef on a weight-based protocol. Limb was exsanguinated, tourniquet was inflated to 300 mmHg. Standard midline approach was used to initiate the surgery and perform a medial parapatellar arthrotomy. The patella was everted at the distal femur. The synovium was T'eed and elevated and a small portion was removed. At the medial aspect of the tibial plateau, periosteal flap was raised to the posteromedial corner. The knee was brought into deep flexion. Cruciate ligaments were released from the distal femur and removed. Visible portions of the anterior menisci were removed, the more affected compartment was lateral. First, the proximal tibial osteotomy was performed and external medullary guide was positioned directing in front of the tibial crest overlying the second metatarsal and directing in towards the center of the tibial plateau. The jig was affixed and a 2 mm cut from the more affected side, which was lateral was performed. The bone was more sclerotic and eburnated laterally consistent with the patient's more valgusly aligned knee. Attention was then turned to the distal femur. An intramedullary guide was positioned after gaining intramedullary access through the femur. There was a plan for a 5-degree cut removing 10 mm of bone. Once the jig had been appropriately placed and affixed with pins, the distal femoral cut was performed. Immediately, the extension gap was checked as well as the alignment and a 9 mm spacer was able to be placed with the knee being inclined to full extension and the alignment was excellent. Continued to proceed forward with preparing the distal femur. AP sizer was placed and a size 7 was chosen. The appropriate 4-in-1 cutting block was placed and care was taken at this time to confirm the 3 degrees of external rotation, it was for right knee. Once this had been verified, the anterior, posterior, and chamfer cuts were performed. At this point with the majority of the bone cuts having been performed, better access was gained to the posterior aspect of the knee and additional meniscal tissue was able to be removed from the back of the knee. A trial femur was placed as well as the trial tibia was positioned anatomically and both were sized 7 with a 9 mm poly. There was excellent range of motion and good stability. The box cut to distal femur was then performed and attention was returned to the proximal tibia where the final punching of the proximal tibia was performed. At this point, all of the bone preparation had been performed to the tibia and femur. Attention was then turned to the patella. Prior to performing the osteotomy of the patella, it measured about 29, almost 30 mm and full resection was approximately 20. The appropriate 3 drill holes were placed medializing the patella as much as possible and then a trial button was placed. A trial was again performed and tracking of the patella was observed to be excellent. All the trial instruments were removed at this point and bone cement was prepared while the bone cuts were washed and dried. Final cementing of the implant was performed in standard fashion. Sequentially, first the tibia was impacted and excess bone cement was removed, followed by the distal femur and a size 9 poly was then placed and the knee was kept in full and deep extension and finally the patella was cemented into position and held with a clamp until all of the cement had fully hardened. Excess cement had been removed. Once all bones had fully hardened, a size 9 and a size 11 poly was trialed and the size 11 had the same degree of flexion and extension, but it did appear to have slightly improved stability to medial side to varus-valgus stress, so the size 11 was chosen and the final poly was impacted into position. The closure was performed meticulously especially to close the arthrotomy and extension mechanism was closed with multiple interrupted [id number] #[id number] FiberWire and then a running stitch was placed over top. The stability of this closure was further verified by bringing the knee into deep flexion and was stable without any gaping apparent. Additional irrigation was performed at this point. Tourniquet was deflated and final closure was performed with some deep tissue with 0, subcutaneous with 2-0, and skin closed with skin mariel. Skin washed and dried. Sterile dressings were applied with Xeroform, also 4x4's, ABD, Webril, Arpit wrap, and a knee immobilizer was placed. The patient tolerated the procedure well and was able to be awoke from general anesthesia, taken to the recovery room, awake, alert, in good condition. Nabil Saenz MD
== END 2017-09-21 14:50 | DRG 470 ==
LOC: H.OPSURG 06:08 → H.MEDSURG1 15:47
PROVIDERS: ADMIT Student in an Organized Health Care Education/Training Program; ATTEND Student in an Organized Health Care Education/Training Program
PROC: 0SRC0J9 Replacement of Right Knee Joint with Synthetic Substitute, Cemented, Open Approach (ICD-10-PCS; 2017-09-18)
PROC: 3E0234Z Introduction of Serum, Toxoid and Vaccine into Muscle, Percutaneous Approach (ICD-10-PCS; principal; 2017-09-18 09:45)
PROC: 3E0T3BZ Introduction of Anesthetic Agent into Peripheral Nerves and Plexi, Percutaneous Approach (ICD-10-PCS; 2017-09-18 09:45)
PROC: 3E0T3BZ Introduction of Anesthetic Agent into Peripheral Nerves and Plexi, Percutaneous Approach (ICD-10-PCS; 2017-09-18 09:45)
DX: M17.11 Unilateral primary osteoarthritis, right knee (principal); E11.40 Type 2 diabetes mellitus with diabetic neuropathy, unspecified; E11.319 Type 2 diabetes mellitus with unspecified diabetic retinopathy without macular edema; E66.9 Obesity, unspecified; Z68.33 Body mass index [BMI] 33.0-33.9, adult; M21.371 Foot drop, right foot; E78.5 Hyperlipidemia, unspecified; I10 Essential (primary) hypertension; Z23 Encounter for immunization; I25.10 Atherosclerotic heart disease of native coronary artery without angina pectoris; G89.29 Other chronic pain; H91.90 Unspecified hearing loss, unspecified ear; G57.31 Lesion of lateral popliteal nerve, right lower limb; R33.0 Drug induced retention of urine; T41.205A Adverse effect of unspecified general anesthetics, initial encounter; N40.1 Benign prostatic hyperplasia with lower urinary tract symptoms; N99.89 Other postprocedural complications and disorders of genitourinary system; R33.8 Other retention of urine; Z79.4 Long term (current) use of insulin; Z85.828 Personal history of other malignant neoplasm of skin; M51.36 Other intervertebral disc degeneration, lumbar region; Z87.891 Personal history of nicotine dependence; M54.18 Radiculopathy, sacral and sacrococcygeal region; T40.605A Adverse effect of unspecified narcotics, initial encounter